=== PATIENT | male | born 1960 | race Two or more races ===

== ENCOUNTER 2019-04-28 03:09 | Emergency (ER) | payer OTHER ==
[~2019-04-28] VITALS: Ht 167.6 cm; Wt 70.0 kg
[2019-04-28] MEDS ORDERED: KETOROLAC 60MG/2ML VIAL IM ONE (05:30)
[2019-04-28] MEDS ORDERED: OXYCODONE HCL/ACETAMINOPHEN 5/325MG TABLET PO ONE (06:00)
[2019-04-28 07:22] VITALS: BP 106/71
== END 2019-04-28 07:33 | disposition home or self-care (01) ==
LOC: EDBD 03:09 → ER 03:09
DX: S60.221A Contusion of right hand, initial encounter (principal); V49.49XA Driver injured in collision with other motor vehicles in traffic accident, initial encounter; Y93.89 Activity, other specified; Y92.89 Other specified places as the place of occurrence of the external cause; Y99.8 Other external cause status; F12.10 Cannabis abuse, uncomplicated
CPT/HCPCS: 70450; 71101; 96372; 99284; J1885